=== PATIENT | female | born 1995 | race Caucasian/White ===

== ENCOUNTER 2019-12-15 01:15 | Emergency (ER) | payer OTHER ==
[~2019-12-15] VITALS: Ht 431.8 cm; Wt 1.7 kg
[2019-12-15 01:18] VITALS: TEMP 97
[2019-12-15 01:40] LABS: COLLECTION METHOD CLEAN CATCH
[2019-12-15 01:54] LABS: PH 5 (5-8); SQUAMOUS EPITHELIAL None Seen /hpf; URINE APPEARANCE Turbid; URINE BACTERIA None Seen /hpf; URINE BILIRUBIN Negative (NEGATIVE); URINE BLOOD 3+ (NEGATIVE); URINE COLOR Amber; URINE GLUCOSE Negative (NEGATIVE); URINE KETONE 1+ (NEGATIVE); URINE LEUKOCYTE ESTERASE 2+ (NEGATIVE); URINE NITRATE Negative (NEGATIVE); URINE PROTEIN(semi-quant) 2+ (NEGATIVE); URINE RBC >50 /hpf; URINE UROBILINOGEN Negative (NEGATIVE)
[2019-12-15] MEDS ORDERED: CEPHALEXIN500 M1 PO (02:50)
[2019-12-15 03:16] VITALS: BP 114/70; PULSE 78
== END 2019-12-15 03:16 | disposition home or self-care (01) ==
LOC: COL.ER 01:15
PROVIDERS: Physician Assistant
DX: N12 Tubulo-interstitial nephritis, not specified as acute or chronic (principal); Z32.02 Encounter for pregnancy test, result negative
CPT/HCPCS: J0696; J7030

== ENCOUNTER → 2021-06-10 | Outpatient (CLI) | payer OTHER ==
[~2021-06-10] MED LIST: CEPHALEXIN500 M1 PO
== END ==
LOC: COL.RAD 07:30
DX: N39.0 Urinary tract infection, site not specified (principal)

== ENCOUNTER → 2021-11-03 | Outpatient (CLI) | payer OTHER | LOC: MC.RAD 08:19 | DX: R22.2 Localized swelling, mass and lump, trunk (principal); N63.0 Unspecified lump in unspecified breast ==